=== PATIENT | female | born 1955 | race Caucasian/White ===

== ENCOUNTER 2017-01-22 20:43 | Emergency (ER) | payer MEDICAID | END 2017-01-22 22:10 | disposition home or self-care (01) | LOC: D.ER 20:43 | DX: T78.40XA Allergy, unspecified, initial encounter (principal); X58.XXXA Exposure to other specified factors, initial encounter; I10 Essential (primary) hypertension ==

== ENCOUNTER → 2017-11-29 15:49 | Outpatient (CLI) | payer MEDICAID | END | disposition home or self-care (01) | LOC: D.MRI 15:49 | DX: M25.562 Pain in left knee (principal) ==

== ENCOUNTER → 2018-02-07 10:13 | Outpatient (CLI) | payer MEDICAID | END | disposition home or self-care (01) | LOC: D.US 10:13 | DX: I83.893 Varicose veins of bilateral lower extremities with other complications (principal) ==